=== PATIENT | female | born 1930 | race Caucasian/White ===

== ENCOUNTER 2018-11-13 10:18 | Emergency (ER) | payer BC, OTHER ==
[2018-11-13 10:30] VITALS: BP 150/85; PULSE 84; TEMP 97.8; BMI 22.3
--- NOTE | 2018-11-13 10:40 | PDOC ---
History of Present Illness - General Chief Complaint: Allergic Reaction Stated Complaint: SWELLING, REDNESS, ITCHY AROUND EYES, FACE Time Seen by Provider: 11/13/18 10:27 - History of Present Illness Initial Comments: 88 year old female with PMH of HTN, HLD, and hypothyroidism presenting with erythema and periorbital/ right lower facial swelling since yesterday evening after eating dinner. Patient states that she pulled some weeds last night around 5 PM from the side of her house without gloves then ate dinner after after dinner she noticed swelling on her upper maxillae bilaterally and around her orbits. Denied any itching but states that it was burning. She washed her face and went to bed but felt as if there was some burning which made it slightly difficult to sleep. This morning her periorbital swelling had improved but she noticed some mild swelling and erythema on the right lower portion of her face so she called her PCP (Dr. Bailey) who recommended she come to the ED. She denies dysphagia, odynophagia, nausea, vomiting, diarrhea, wheezing, SOB , cough, visual symptoms, ocular discharge, rhinorrhea, or other symptoms. She denies any rcent change in her perfume, detergent, tetracycline usage, or recently washing her sheets. She has been on the same dose of captopril for years. She is allergic to sulfa drugs. She has never had these symptoms before. 11/13/18 10:32 Past History - Past Medical History Allergies/Adverse Reactions: Allergies Allergy/AdvReac Type Severity Reaction Status Date / Time Sulfa (Sulfonamide Allergy Verified 11/13/18 10:21 Antibiotics) Home Medications: Ambulatory Orders Amlodipine Besylate 5 mg PO DAILY 11/13/18 Amoxicillin - [Amoxicillin 500mg Capsule -] 500 mg PO TID 5 Days #15 capsule Aspirin [Aspirin EC] 81 mg PO DAILY 11/13/18 Captopril 50 mg PO BID 11/13/18 Clindamycin [Cleocin -] 300 mg PO Q6HPO 7 Days #28 capsule 11/13/18 Levothyroxine [Synthroid -] 88 mcg PO DAILY 11/13/18 Pravastatin Sodium [Pravachol (Nf)] 40 mg PO HS 11/13/18 COPD: No HTN: Yes Hypercholesterolemia: Yes Thyroid Disease: Yes - Suicide/Smoking/Psychosocial Hx Smoking History: Never smoked Have you smoked in the past 12 months: No Information on smoking cessation initiated: No Hx Alcohol Use: (nightly) Review of Systems - Review of Systems Constitutional: No: Chills, Diaphoresis, Fever HEENTM: No: Eye Pain, Blurred Vision, Tearing, Double Vision Respiratory: No: Cough, Shortness of Breath, Wheezing Cardiac (ROS): No: Chest Pain, Irregular Heart Rate, Lightheadedness, Palpitations ABD/GI: No: Diarrhea, Nausea, Vomiting : No: Discharge, Frequency Musculoskeletal: No: Back Pain, Joint Pain, Joint Swelling Integumentary: Yes: Erythema, Lesions, Rash, Other (burning). No: Bruising, Pruritus Neurological: No: Headache, Numbness, Paresthesia Psychiatric: No: Anxiety, Depression, Frequent Crying, Stressors Endocrine: No: Intolerance to Cold, Increased Thirst Hematologic/Lymphatic: No: Anemia, Blood Clots, Easy Bleeding *Physical Exam - Vital Signs Last Vital Signs Temp Pulse Resp BP Pulse Ox 97.8 F 84 18 150/85 100 11/13/18 10:18 11/13/18 10:18 11/13/18 10:18 11/13/18 10:18 11/13/18 10:18 - Physical Exam General Appearance: Yes: Nourished, Appropriately Dressed. No: Apparent Distress HEENT: positive: EOMI, CHUN, Normal Voice, Pharynx Normal. negative: Normal ENT Inspection (periorbital skin changes per integumentary section), Tonsillar Erythema, Nasal Congestion, Excessive drooling Neck: positive: Trachea midline, Normal Thyroid, Supple. negative: Tender, Rigid Respiratory/Chest: positive: Lungs Clear, Normal Breath Sounds. negative: Chest Tender, Respiratory Distress, Accessory Muscle Use Cardiovascular: positive: Regular Rhythm, Regular Rate Gastrointestinal/Abdominal: positive: Normal Bowel Sounds, Flat, Soft. negative : Tender Lymphatic: negative: Adenopathy, Tenderness Musculoskeletal: positive: Normal Inspection. negative: Decreased Range of Motion Extremity: positive: Normal Capillary Refill, Normal Inspection, Normal Range of Motion. negative: Tender Integumentary: positive: Dry, Warm, Rash (confluent periorbital macular erythematous lesions eith similar macular lesion on the lopwer aspect of the right mandible. Very mild edema if any. Temperature of lesion consistent with surrounding skin. Non-pruritic. No weeping from lesions or open skin). negative : Normal Color Medical Decision Making - Medical Decision Making 88 year old female presenting with macular, erythematous, confluent, non- pruritic periorbital rash with similar lesion on right lower aspect of the mandible. given that this happened an hour or so after she was in contact with some outdoor vegetable matter, this could represent a contact dermatitis or even a photodermatitis given she was outside in her yard yesterday (although there as heavy overcast). There is a burning sensation which corroborates both of these diagnoses. She denies any recent tetracycline usage. Less likely Herpes zoster given that it crosses multiple dermatomes and patient is not otherwise immunocompromised. No TM or ocular involvement either. Less likely systemic allergic reaction because she admittedly had not sulfa drug ingestion and she has no airway or GI involvement. Other possible diagnoses that are possible but less likely include lupus and other autoimmune disorders with skin manifestations. Also of possibility is a Bradykinin excess via ANGELINE inhibitor ( Hereditary less likely) but she has been on the same dose for years without issue. Overall, she admits that her symptoms have improved since yesterday. We administered one IM dose of Benadryl 25 MG with good relief of her symptoms in the possible scenario that this was histamine related. We decided to also cover her for potential cellulites with amoxicillin and clindamycin. We instructed her to use topical aloe vera, maintain appropriate ultraviolet light barrier precautions, avoid outdoor vegetation contact, and gave her strict return precautions. She felt improved and agreed with the plan. 11/13/18 10:45 *DC/Admit/Observation/Transfer Diagnosis at time of Disposition: Dermatitis - Discharge Dispostion Disposition: HOME Condition at time of disposition: Improved - Referrals Referrals: Stas Najera MD [Primary Care Provider] - - Patient Instructions Printed Discharge Instructions: DI for Eye Allergic Reaction Additional Instructions: Please use aloe vera solution on your skin three times per day. Please use the antibiotics ass prescribed. Please avoid pulling any weeds or plants from your yard for the next two days. When you return to gardening, please use gloves. Please avoid going out in the sun without proper sunscreen application (SPF 30 at minimum, applied 30 minutes before venturing outside). Please followup with Dr. Bailey as soon as you can. Please return to the ED immediately if you have worsening of the rash, worsening of the pain, fevers, chills, nausea, vomiting, trouble breathing, or any other symptoms that are concerning to you. - Post Discharge Activity
--- NOTE | 2018-11-13 11:22 | PDOC ---
Attending Attestation - Resident Resident Name: Saad Tate - ED Attending Attestation I have performed the following: I have examined & evaluated the patient, The case was reviewed & discussed with the resident, I agree w/resident's findings & plan, Exceptions are as noted - HPI HPI: 11/13/18 11:22 88 F with HTN, HLD, hypothyroid presenting to ED with rash on her face since last night. Pt notes that she was outside pulling weeds in her yard yesterday but denies any contact with her eyes. Last night began to have a burning sensation to her face around her eyes. This morning, noticed redness around her eyes. Denies any blurred vision or pain in her eyes. Denies pain with EOM. Denies F/C. Denies any tongue or lip swelling. Denies SOB. - Physicial Exam PE: 11/13/18 11:23 "GENERAL: Awake, alert, and fully oriented, in no acute distress. HEAD: No signs of trauma EYES: PERRLA, EOMI, sclera anicteric, conjunctiva clear ENT: Auricles normal inspection, hearing grossly normal, nares patent, oropharynx clear without exudates. Moist mucosa NECK: Nontender, no stepoffs, Normal ROM, supple, no lymphadenopathy, JVD, or masses LUNGS: Breath sounds equal, clear to auscultation bilaterally. No wheezes, and no crackles HEART: Regular rate and rhythm, normal S1 and S2, no murmurs, rubs or gallops ABDOMEN: Soft, nontender, normoactive bowel sounds. No guarding, no rebound. No masses EXTREMITIES: Normal range of motion, no edema. No clubbing or cyanosis. No cords, erythema, or tenderness NEUROLOGICAL: Cranial nerves II through XII intact. 5/5 strength and sensation in all extremities, Normal speech, normal gait, normal cerebellar function SKIN: + periorbital erythema - Medical Decision Making 11/13/18 11:24 88 F with periorbital erythema and burning. Unlikely allergic rxn as pt with no other symptoms of allergic reaction, no rash anywhere else. Possible heliotrope rash. Possible preseptal cellulitis. - Benadryl - Abx for preseptal cellulitis - F/u PMD Pt is well appearing, with normal vitals. Clinically stable for DC at this time. I discussed the physical exam findings, ancillary test results and final diagnoses with the patient. I answered all of the patient's questions. The patient was satisfied with the care received and felt comfortable with the discharge plan and treatment plan. The patient agrees to follow up with the primary care physician within 24-72 hours.
[2018-11-13] MEDS ORDERED: CLINDAMYCIN HCL 150 MG CAPSULE (FP) PO ONE (11:34)
[2018-11-13] MEDS ORDERED: AMOXICILLIN 500 MG CAPSULE (FP) PO ONE (11:34)
[2018-11-13] MEDS ORDERED: CLINDAMYCIN HCL 150 MG CAPSULE (FP) ONE (11:36)
== END 2018-11-13 11:50 | disposition home or self-care (01) ==
LOC: FER 10:18
PROC: 3E0233Z Introduction of Anti-inflammatory into Muscle, Percutaneous Approach (ICD-10-PCS; principal; 2018-11-13)
DX: L30.9 Dermatitis, unspecified (principal); I10 Essential (primary) hypertension; E78.00 Pure hypercholesterolemia, unspecified; E07.9 Disorder of thyroid, unspecified
CPT/HCPCS: 99283-25

== ENCOUNTER 2018-11-15 11:47 | Emergency (ER) | payer OTHER | END 2018-11-15 13:47 | disposition home or self-care (01) | LOC: FER 11:47 ==